=== PATIENT | male | born 1990 | race American Indian/Alaskan Native ===

== ENCOUNTER 2020-03-09 21:41 | Emergency (ER) | payer SELFPAY ==
[2020-03-09] MEDS ORDERED: ACETAMINOPHEN 500 MG TAB PO ONE (22:13)
[2020-03-09] MEDS ORDERED: SODIUM CHLORIDE 0.9% 1000 ML 1,000 ML IV ONE (22:34)
[2020-03-09] MEDS ORDERED: methylPREDNISolone Sod Succinate 125 MG/2 ML INJ IV ONE (22:35)
[2020-03-09] MEDS ORDERED: KETOROLAC 30 MG/1 ML INJ IV ONE (22:35)
--- NOTE | 2020-03-09 22:37 | Emergency Department Report ---
HPI - General Chief Complaint: Dyspnea/Respdistress Time Seen by Provider: 03/09/20 22:27 - HPI HPI: This is a 29-year-old -[place] male presents to the emergency department with a complaint of sore throat, shortness of breath, body aches and fever that is been going on since yesterday morning. The patient drove in from [place] and went to another emergency department earlier today. He says that he tested negative for both COVID-19 and strep pharyngitis. He denies any past medical history. No known exposure to anyone with Covid 19. He denies any chest pain, nausea or vomiting, abdominal pain, constipation or diarrhea, rash. ED Past Medical Hx - Past Medical History Previous Medical History?: No - Surgical History Past Surgical History?: Yes Additional Surgical History: Leg - Social History Smoking Status: Current Every Day Smoker Substance Use Type: Alcohol, Marijuana - Medications Home Medications: Home Medications Medication Instructions Recorded Confirmed Last Taken Type Albuterol Mdi (or & Nicu Only) 2 puff IH QID PRN #8.5 gram 03/10/20 Unknown Rx [ProAir HFA Inhaler] Azithromycin [Zithromax Z-BRENDAN] 250 mg PO DAILY #6 tab 03/10/20 Unknown Rx Ondansetron [Zofran Odt] 4 mg PO Q8HR PRN #15 tab.rapdis 03/10/20 Unknown Rx ED Review of Systems ROS: Stated complaint: DIFFICULTY BREATHING,SWEATING Other details as noted in HPI Comment: All other systems reviewed and negative Constitutional: chills, fever Eyes: denies: eye pain, vision change ENT: throat pain. denies: ear pain Respiratory: shortness of breath. denies: wheezing Cardiovascular: denies: chest pain, edema Gastrointestinal: denies: abdominal pain, vomiting, diarrhea, constipation Genitourinary: denies: dysuria, discharge Musculoskeletal: back pain, myalgia. denies: joint swelling Skin: denies: rash, lesions Neurological: denies: numbness, paresthesias Physical Exam - Physical Exam Vital Signs: Vital Signs 03/09/20 21:55 Temperature 101.2 F H Pulse Rate 97 H Respiratory 20 Rate Blood Pressure 132/80 O2 Sat by Pulse 98 Oximetry Physical Exam: GENERAL: The patient is well-developed well-nourished. HENT: Normocephalic. Atraumatic. Patient has moist mucous membranes. There is some tonsillar hypertrophy bilaterally without erythema or exudates. No drooling or trismus. EYES: Extraocular motions are intact. NECK: Supple. Trachea is midline. CHEST/LUNGS: Clear to auscultation. No tachypnea or accessory muscle use. There is no respiratory distress noted. HEART/CARDIOVASCULAR: Regular. There is mild tachycardia. There is no murmur. ABDOMEN: Abdomen is soft. There is some periumbilical abdominal tenderness to palpation. No guarding. Patient has normal bowel sounds. There is no abdominal distention. SKIN: Skin is warm and dry. NEURO: The patient is awake, alert, and oriented. The patient is cooperative. The patient has no focal neurologic deficits. Normal speech. MUSCULOSKELETAL: There is no tenderness or deformity. There is no limitation range of motion. There is no evidence of acute injury. ED Course Vital Signs 03/09/20 21:55 Temperature 101.2 F H Pulse Rate 97 H Respiratory 20 Rate Blood Pressure 132/80 O2 Sat by Pulse 98 Oximetry ED Medical Decision Making - Lab Data Result diagrams: 03/09/20 22:44 03/09/20 22:44 - EKG Data -: EKG Interpreted by Me EKG shows normal: sinus rhythm, axis, intervals, QRS complexes, ST-T waves Rate: normal - EKG Data When compared to previous EKG there are: previous EKG unavailable Interpretation: normal EKG - Radiology Data Radiology results: report reviewed, image reviewed interpreted by me: Chest x-ray does not show any acute process. There are no pleural effusions, obvious pneumonia and there is no pneumothorax. CT ABDOMEN AND PELVIS WITH CONTRAST INDICATION: Abd pain CONTRAST: 100 cc Omnipaque 300 IV COMPARISON: None available. All CT scans at this location are performed using CT dose reduction for ALARA by means of automated exposure control. FINDINGS: Lung bases are clear. No pneumoperitoneum is noted. Tiny probable cyst is seen in the right lobe of the liver and also in the left kidne y. Mild left nephrolithiasis is seen. No urinary obstructive changes are noted. No ureteral abnormalities are seen. Small amount of nonspecific free fluid is noted. There is a tiny amount of fluid adjacent to the gallbladder but I do not see calculi or definite wall thickening. No biliary dilatation is noted. Pancreas appears within normal limits. No other masses are seen. No lymphadenopathy is noted. No focal inflammatory changes are noted. No evidence of bowel obstruction is seen. However, there is mild nonspecific fluid filling of several small bowel loops. Mild periportal edema is noted. Heart is not enlarged. The inferior vena cava is mildly prominent however no intra-abdominal edema is obvious. No subcutaneous edema is seen. What is probably the appendix is partially seen without obvious abnormality and no inflammation is seen in the right lower quadrant. IMPRESSION: 1. Mild left nephrolithiasis without acute change seen 2. Minimal fluid adjacent to the gallbladder which otherwise shows no obvious abnormalities. 3. Evidence of mild periportal edema. This is nonspecific but can be seen with hepatitis. Congestive failure can give similar findings and the inferior vena cava is mildly prominent but in this young patient without cardiomegaly this is not favored. Clinical correlation for possibility of hepatitis is suggested. 4. Mild nonspecific fluid filling of small bowel. This can be seen with enteritis. I do not see evidence of small bowel obstruction. - Medical Decision Making This is a 29-year-old male presents to the emergency department with complaint of some abdominal pain, shortness of breath, fever, sore throat, body aches. After arrival he began having some nausea and vomiting. A chest x-ray was done that does not show any pneumonia, pleural effusions, pneumothorax, or any other acute process. Negative rapid strep test and negative Monospot. Patient has a leukocytosis of 25,000. The rest of the labs are unremarkable. Patient was empirically treated with some IV antibiotics for his pharyngitis and abdominal pain. He received antiemetics, IV fluid resuscitation and a dose of IV analgesia. A CT scan of the abdomen and pelvis with IV contrast was done that shows some signs of enteritis, some mild periportal edema that could be seen with hepatitis and some mild fluid adjacent to the gallbladder without any other obvious abnormalities. The patient was reevaluated multiple times over multiple hours and is feeling greatly improved. Patient was able to pass an oral challenge. He appears safe for discharge home at this time. Despite the fact the patient had a negative Covid test earlier today, he is still suspicious for Covid 19. He has been instructed to seek outpatient retesting. He has been g iven a prescription for an albuterol inhaler, antiemetics and a Z-Brendan. Patient will return to the ER with any worsening of his symptoms or with any acute distress. Vital signs have been reassuring including no hypoxia. Critical Care Time: No Critical care attestation.: If time is entered above; I have spent that time in minutes in the direct care of this critically ill patient, excluding procedure time. ED Disposition Clinical Impression: Suspected 2019 novel coronavirus infection, Shortness of breath Abdominal pain Qualifiers: Abdominal location: lower abdomen, unspecified Qualified Code(s): R10.30 - Lower abdominal pain, unspecified Nausea & vomiting Qualifiers: Vomiting type: unspecified Vomiting Intractability: non-intractable Qualified Code(s): R11.2 - Nausea with vomiting, unspecified Disposition: DC- TO HOME OR SELFCARE Is pt being admited?: No Condition: Stable Instructions: COVID-19, Fever in Adults (ED), Acute Nausea and Vomiting (ED), Abdominal Pain (ED), Dyspnea (ED) Additional Instructions: See department with any worsening of your symptoms or with any acute distress. Please follow-up with a primary care physician in the next few days. Increase your oral rehydration. You can take Tylenol every 4-6 hours and ibuprofen every 6-8 hours, using the dosing on the back of the bottle, as needed for any fever or discomfort. Prescriptions: Albuterol Mdi (or & Nicu Only) [ProAir HFA Inhaler] 2 puff IH QID PRN #8.5 gram PRN Reason: Shortness Of Breath Azithromycin [Zithromax Z-BRENDAN] 250 mg PO DAILY #6 tab Ondansetron [Zofran Odt] 4 mg PO Q8HR PRN #15 tab.rapdis PRN Reason: Nausea Referrals: PRIMARY CARE, [Primary Care Provider] - 2-3 Days Time of Disposition:
--- NOTE | 2020-03-09 22:52 | XRay Report ---
CHEST 1 VIEW 20-33 INDICATION / CLINICAL INFORMATION: MAIN COMPARISON: None available. FINDINGS: SUPPORT DEVICES: None HEART / MEDIASTINUM: No significant abnormality. LUNGS / PLEURA: No significant pulmonary or pleural abnormality. No pneumothorax. ADDITIONAL FINDINGS: No significant additional findings. IMPRESSION: No significant acute abnormality Signer Name: Evaristo Cisneros MD Signed: 03/09/2020 10:47 PM Workstation Name: [id number]
[2020-03-09 23:01] LABS: Hematocrit 42.7 % (35.5-45.6); Hemoglobin 13.9 gm/dl (11.8-15.2); Mean Corpuscular HGB Conc 33 % (32-34); Mean Corpuscular Volume 84 fl (84-94); Platelet Count 200 K/mm3 (140-440); Red Cell Distribution Width 13.9 % (13.2-15.2)
[2020-03-09] MEDS ORDERED: AZITHROMYCIN 500 MG in SODIUM CHLORIDE 0.9% 250ML 250 ML IV ONE (23:09)
[2020-03-09 23:22] LABS: Alanine Aminotransferase 10 units/L (7-56); Albumin 4.3 g/dL (3.9-5); BUN/Creatinine Ratio 7; Blood Urea Nitrogen 7 mg/dL (9-20); Calcium 9.3 mg/dL (8.4-10.2); Hemolysis Index 6
[2020-03-09] MEDS ORDERED: PIPERACIL/TAZOBACTA 4.5/NS 100 4.5 GM/100 ML VIAL IV ONE ×2 (23:35→23:37)
[2020-03-09] MEDS ORDERED: ONDANSETRON 4 MG/2 ML INJ ONE (23:52)
[2020-03-10] MEDS ORDERED: SODIUM CHLORIDE 0.9% 1000 ML 1,000 ML IV ONE (00:03)
[2020-03-10] MEDS ORDERED: ONDANSETRON 4 MG/2 ML INJ IV ONE ×2 (00:03→00:41)
[2020-03-10] MEDS ORDERED: MORPHINE 4 MG/1 ML INJ IV ONE (00:31)
[2020-03-10] MEDS ORDERED: MORPHINE 4 MG/1 ML INJ ONE (00:34)
--- NOTE | 2020-03-10 02:06 | Cat Scan Report ---
CT ABDOMEN AND PELVIS WITH CONTRAST INDICATION: Abd pain CONTRAST: 100 cc Omnipaque 300 IV COMPARISON: None available. All CT scans at this location are performed using CT dose reduction for ALARA by means of automated e xposure control. FINDINGS: Lung bases are clear. No pneumoperitoneum is noted. Tiny probable cyst is seen in the right lobe of the liver and also in the left kidney. Mild left nephrolithiasis is seen. No urinary obstruc tive changes are noted. No ureteral abnormalities are seen. Small amount of nonspecific free fluid is noted. There is a tiny amount of fluid adjacent to the gallbladder but I do not see calculi or defin ite wall thickening. No biliary dilatation is noted. Pancreas appears within normal limits. No other masses are seen. No lymphadenopathy is noted. No focal inflammatory changes are noted. No evidence of bowel obstruction is seen. However, there is mild nonspecific fluid filling of several small bowel l oops. Mild periportal edema is noted. Heart is not enlarged. The inferior vena cava is mildly promine nt however no intra-abdominal edema is obvious. No subcutaneous edema is seen. What is probably the a ppendix is partially seen without obvious abnormality and no inflammation is seen in the right lower quadrant. IMPRESSION: 1. Mild left nephrolithiasis without acute change seen 2. Minimal fluid adjacent to the gallbladder which otherwise shows no obvious abnormalities. 3. Evidence of mild periportal edema. This is nonspecific but can be seen with hepatitis. Congestive failure can give similar findings and the inferior vena cava is mildly prominent but in this young pa tient without cardiomegaly this is not favored. Clinical correlation for possibility of hepatitis is suggested. 4. Mild nonspecific fluid filling of small bowel. This can be seen with enteritis. I do not see evide nce of small bowel obstruction. Signer Name: Evaristo Cisneros MD Signed: 03/10/2020 2:01 AM Workstation Name: [id number]
[2020-03-10 02:30] VITALS: BP 120/73
[2020-03-10 04:28] LABS: Anisocytosis 1+; Band Neutrophils # (Manual) 0.1 K/mm3; Basophils % (Manual) 0 % (0.0-1.8); Eosinophils % (Manual) 0 % (0.0-4.3); Monocytes % (Manual) 5.5 % (0.0-7.3); Total Cells Counted 200
[2020-03-10 04:29] LABS: Platelet Estimate Consistent w Auto
== END 2020-03-10 02:54 | disposition home or self-care (01) ==
LOC: ED 21:41
DX: R06.02 Shortness of breath (principal); Z20.828 Contact with and (suspected) exposure to other viral communicable diseases; R10.9 Unspecified abdominal pain; R11.2 Nausea with vomiting, unspecified; F17.200 Nicotine dependence, unspecified, uncomplicated; F12.10 Cannabis abuse, uncomplicated; Z98.890 Other specified postprocedural states; Z79.2 Long term (current) use of antibiotics; Z79.899 Other long term (current) drug therapy
CPT/HCPCS: 36415; 71045; 74177; 80053; 82140; 85007; 85025; 85379; 86308; 87040; 87116; 87430; 96361; 96365; 96367; 96375; 96376; 99285; J0456; J1885; J2270; J2405; J2543; J2930; J7030; J7050; Q9967; 93005